=== PATIENT | female | born 1960 | race African-American/Black ===

== ENCOUNTER 2019-06-22 09:28 | Inpatient (IN) | payer MEDICAID, OTHER ==
[~2019-06-22] VITALS: Ht 175.3 cm; Wt 99.8 kg
[~2019-06-22 09:28] MED LIST: LISINOPRIL; METOPROLOL
[2019-06-22] MEDS ORDERED: METHYLPREDNISOLONE SOD SUCC 125 MG/2 ML VIAL IV STA (09:37)
[2019-06-22 10:02] LABS: CHLORIDE 111 mEq/L (98-107)
[2019-06-22 10:09] LABS: BASOPHILS % 1.2 % (0.0-2.0); MEAN CORPUSCULAR HEMOGLOBIN 31.3 pg (28.0-32.0); MEAN CORPUSCULAR VOLUME 93.8 fL (81.0-99.0); MONOCYTES % 8.4 % (2.0-8.0); NEUTROPHILS % 62.4 % (40.0-76.0); PLATELET 165 x1000/uL (130-400); RED BLOOD CELL COUNT 4.16 mill/uL (4.2-5.4); RED CELL DISTRIBUTION WIDTH 14.4 % (11.6-14.6)
[2019-06-22] MEDS ORDERED: FUROSEMIDE 40MG/4ML VIAL IVP ONE (11:00)
[2019-06-22] MEDS ORDERED: ENALAPRIL 2.5MG/2ML VIAL 2ML IV ONE (11:00)
[2019-06-22] MEDS ORDERED: ACETAMINOPHEN 325MG TABLET PO PRN (12:00)
[2019-06-22] MEDS ORDERED: DOCUSATE SODIUM 100MG CAPSULE PO PRN (12:00)
[2019-06-22] MEDS ORDERED: DIPHENHYDRAMINE 50MG/ML VIAL IV PRN (12:00)
[2019-06-22] MEDS ORDERED: ONDANSETRON HCL 4MG/2ML INJ IV PRN (12:00)
[2019-06-22] MEDS ORDERED: GUAIFENESIN 200MG/10ML SUGAR FREE UDC PO PRN (12:00)
[2019-06-22] MEDS ORDERED: IPRATROPIUM/ALBUTEROL 0.5-3(2.5)MG/3ML NEB HHN PRN (12:00)
[2019-06-22 12:33] LABS: PHOSPHORUS 3.9 mg/dL (2.5-4.9)
[2019-06-22] MEDS ORDERED: CLONIDINE 0.1MG TABLET PO NR (14:30)
[2019-06-22 15:10] VITALS: BP 139/79
[2019-06-22] MEDS ORDERED: HYDR-4001 MT (17:37)
[2019-06-22] MEDS ORDERED: DIPH25TA23 MT (17:37)
[2019-06-22] MEDS ORDERED: TRAM50TA3 MT (17:37)
[2019-06-22] MEDS ORDERED: CARV25TA47 MT (17:37)
[2019-06-22] MEDS ORDERED: LORA10TA7 MT (17:37)
[2019-06-22] MEDS ORDERED: GABA-531 PO (17:37)
[2019-06-22] MEDS ORDERED: FURO-151 MT (17:37)
[2019-06-22] MEDS ORDERED: MELO-104 MT (17:37)
[2019-06-22] MEDS ORDERED: INFLUENZA VIRUS VACCINE(AFLURIA) 0.5ML SYR IM ONE (17:45)
[2019-06-22] MEDS: LOSARTAN POTASSIUM 50 MG TABLET PO SCH (19:47)
[2019-06-22 20:00] VITALS: BP 150/86
[2019-06-22] MEDS: IPRATROPIUM/ALBUTEROL 0.5-3(2.5)MG/3ML NEB HHN SCH (20:47)
[2019-06-22] MEDS: FLUTICASONE PROPIONATE 50MCG/SPRAY BOTTLE BOTHNSTRLS SCH (21:00)
[2019-06-22] MEDS: DILTIAZEM HCL 60MG TABLET PO SCH (22:26)
[2019-06-22] MEDS: METHYLPREDNISOLONE SOD SUCC 40 MG/ML VIAL IV SCH (22:27)
[2019-06-22] MEDS: ISOSORBIDE MONONITRATE 30MG TABLET SR 24HR PO SCH (22:27)
[2019-06-23] VITALS: BP 126/74
[2019-06-23] MEDS: IPRATROPIUM/ALBUTEROL 0.5-3(2.5)MG/3ML NEB HHN SCH ×4 (01:18→20:34)
[2019-06-23] MEDS: DILTIAZEM HCL 60MG TABLET PO SCH ×4 (03:40→21:56)
[2019-06-23 04:00] VITALS: BP 150/97
[2019-06-23] MEDS: HYDROCODONE/ACETAMINOPHEN 5/325MG TABLET PO PRN ×2 (05:46→18:49)
[2019-06-23 06:36] LABS: CHLORIDE 109 mEq/L (98-107)
[2019-06-23 06:40] LABS: HEMOGLOBIN. 12.2 g/dL (12.0-16.0); MEAN CORPUSCULAR HEMOGLOBIN 31.5 pg (28.0-32.0); MEAN PLATELET VOLUME 10.9 fl (7.4-10.4); PLATELET 157 x1000/uL (130-400); RED BLOOD CELL COUNT 3.87 mill/uL (4.2-5.4); RED CELL DISTRIBUTION WIDTH 14.5 % (11.6-14.6)
[2019-06-23 06:46] LABS: HDL CHOLESTEROL 62 mg/dL (40-59); LDL CHOLESTEROL 131 mg/dL (5-100)
[2019-06-23 08:00] VITALS: BP 119/63
[2019-06-23] MEDS: METHYLPREDNISOLONE SOD SUCC 40 MG/ML VIAL IV SCH ×2 (08:49→18:51)
[2019-06-23] MEDS: FUROSEMIDE 40MG/4ML VIAL IV SCH (08:49)
[2019-06-23] MEDS: LOSARTAN POTASSIUM 50 MG TABLET PO SCH (08:54)
[2019-06-23] MEDS: ISOSORBIDE MONONITRATE 30MG TABLET SR 24HR PO SCH (08:54)
[2019-06-23] MEDS: FLUTICASONE PROPIONATE 50MCG/SPRAY BOTTLE BOTHNSTRLS SCH ×2 (09:00→21:00)
[2019-06-23] MEDS: ASPIRIN 81MG EC TABLET PO SCH (11:38)
[2019-06-23 12:00] VITALS: BP 125/71
[2019-06-23 16:00] VITALS: BP 146/84
[2019-06-23 16:26] LABS: PLATELET ESTIMATE NORMAL
[2019-06-23 20:00] VITALS: BP 144/78
[2019-06-23] MEDS ORDERED: ATORVASTATIN CALCIUM 20MG TABLET PO SCH (21:00)
[2019-06-24] VITALS: BP 135/69
[2019-06-24] MEDS: IPRATROPIUM/ALBUTEROL 0.5-3(2.5)MG/3ML NEB HHN SCH ×2 (01:30→08:38)
[2019-06-24] MEDS: DILTIAZEM HCL 60MG TABLET PO SCH ×2 (03:10→09:18)
[2019-06-24 04:00] VITALS: BP 140/70
[2019-06-24] MEDS: HYDROCODONE/ACETAMINOPHEN 5/325MG TABLET PO PRN (06:57)
[2019-06-24 07:11] LABS: HEMATOCRIT. 37.7 % (36.0-48.0); HEMOGLOBIN. 12.7 g/dL (12.0-16.0); MEAN CORPUSCULAR HEMOGLOBIN 31.2 pg (28.0-32.0); MEAN CORPUSCULAR VOLUME 92.4 fL (81.0-99.0); MEAN PLATELET VOLUME 10.9 fl (7.4-10.4); PLATELET 178 x1000/uL (130-400); RED BLOOD CELL COUNT 4.08 mill/uL (4.2-5.4); RED CELL DISTRIBUTION WIDTH 14.8 % (11.6-14.6)
[2019-06-24 07:18] LABS: CHLORIDE 109 mEq/L (98-107)
[2019-06-24 08:00] VITALS: BP 169/93
[2019-06-24] MEDS: LOSARTAN POTASSIUM 50 MG TABLET PO SCH (09:18)
[2019-06-24] MEDS: ISOSORBIDE MONONITRATE 30MG TABLET SR 24HR PO SCH (09:18)
[2019-06-24] MEDS: METHYLPREDNISOLONE SOD SUCC 40 MG/ML VIAL IV SCH (09:18)
[2019-06-24] MEDS: FUROSEMIDE 40MG/4ML VIAL IV SCH (09:18)
[2019-06-24] MEDS: ASPIRIN 81MG EC TABLET PO SCH (09:18)
[2019-06-24 11:48] VITALS: BP 145/68
[2019-06-24 13:01] LABS: PLATELET ESTIMATE NORMAL
[2019-06-24] MEDS ORDERED: CARVEDILOL 12.5MG TABLET PO SCH (21:00)
[2019-06-25] MEDS ORDERED: LOSARTAN POTASSIUM 100 MG TABLET PO SCH (09:00)
== END 2019-06-24 12:00 | disposition home or self-care (01) | DRG 133 ==
LOC: ER 09:28 → 8WST 11:03 → ENRESERV 13:50
PROVIDERS: ADMIT Internal Medicine; ATTEND Internal Medicine
DX: J96.00 Acute respiratory failure, unspecified whether with hypoxia or hypercapnia (principal); I50.33 Acute on chronic diastolic (congestive) heart failure; E66.01 Morbid (severe) obesity due to excess calories; J44.1 Chronic obstructive pulmonary disease with (acute) exacerbation; I42.9 Cardiomyopathy, unspecified; I25.10 Atherosclerotic heart disease of native coronary artery without angina pectoris; I11.0 Hypertensive heart disease with heart failure; B19.20 Unspecified viral hepatitis C without hepatic coma; I25.2 Old myocardial infarction; E78.5 Hyperlipidemia, unspecified; Z95.1 Presence of aortocoronary bypass graft; Z87.891 Personal history of nicotine dependence; J06.9 Acute upper respiratory infection, unspecified; Z88.0 Allergy status to penicillin; Z88.2 Allergy status to sulfonamides; Z68.32 Body mass index [BMI] 32.0-32.9, adult
CPT/HCPCS: 36415; 71045; 80048; 80061; 83735; 83880; 84100; 84443; 84484; 93005; 93306; 93970; 94640; 99285; C1893; J1940; J2920; J2930; J3490; J7620